=== PATIENT | male | born 1960 | race African-American/Black ===

== ENCOUNTER 2019-07-05 15:37 | Inpatient (IN) | payer OTHER ==
[2019-07-05 20:47] VITALS: BMI 29.7
--- NOTE | 2019-07-05 23:46 | HP ---
COWS - Scale Resting Pulse: 0= [place] 80 or Below Sweatin=Flushed/Facial Moisture Restless Observation: 0= Sits Still Pupil Size: 0= Normal to Room Light Bone or Joint Aches: 2= Severe Diffuse Aches Runny Nose/ Eye Tearin= Runny Nose/Eyes GI Upset > 30mins: 3= Vomiting/Diarrhea (vomiting x 2, diarrhea x 4) Tremor Observation: 2= Slight Tremor Visible Yawning Observation: 1= 1-2x During Session Anxiety or Irritability: 4=Extreme Anxiety Goose Flesh Skin: 3=Piloerection COWS Score: 19 CIWA Score - Admission Criteria OASAS Guidelines: Admission for Medically Managed Detox: Requires at least one of the followin. CIWA greater than 12 2. Seizures within the past 24 hours 3. Delirium tremens within the past 24 hours 4. Hallucinations within the past 24 hours 5. Acute intervention needed for co occurring medical disorder 6. Acute intervention needed for co occurring psychiatric disorder 7. Severe withdrawal that cannot be handled at a lower level of care (continued vomiting, continued diarrhea, abnormal vital signs) requiring intravenous medication and/or fluids 8. Admission ROS [facility] Chief Complaint: Heroin withdrawal symptom Allergies/Adverse Reactions: Allergies Allergy/AdvReac Type Severity Reaction Status Date / Time No Known Allergies Allergy Verified 07/05/19 20:34 History of Present Illness: 59 years old with 37 years of heroin dependence is seeking admission to detox. Patient has been to multiple detox admissions, last [facility] [place], [place]. He has history of hypertension and denies suicidal ideation at this time Exam Limitations: No Limitations - Ebola screening Have you traveled outside of the country in the last 21 days: No Have you had contact with anyone from an Ebola affected area: No Have you been sick,other than usual withdrawal symptoms: No - Review of Systems Constitutional: Chills, Changes in sleep, Unintentional Wgt. Loss EENT: reports: Nose Congestion Respiratory: reports: No Symptoms reported Cardiac: reports: No Symptoms Reported GI: reports: Diarrhea, Poor Appetite, Poor Fluid Intake, Abdominal cramping : reports: No Symptoms Reported Musculoskeletal: reports: Back Pain Integumentary: reports: Dryness, Flushing Neuro: reports: Headache, Tremors Endocrine: reports: No Symptoms Reported Hematology: reports: No Symptoms Reported Psychiatric: reports: Mood/Affect Appropiate, Orientated x3 Other Systems: Reviewed and Negative Patient History - Patient Medical History Hx Anemia: No Hx Asthma: No Hx Chronic Obstructive Pulmonary Disease (COPD): No Hx Cancer: No Hx Cardiac Disorders: No Hx Congestive Heart Failure: No Hx Hypertension: No Hx Hypercholesterolemia: No Hx Pacemaker: No HX Cerebrovascular Accident: No Hx Seizures: No Hx Dementia: No Hx Diabetes: No Hx Gastrointestinal Disorders: No Hx Liver Disease: No Hx Genitourinary Disorders: No Hx Sexually Transmitted Disorders: No Hx Renal Disease (ESRD): No Hx Thyroid Disease: No Hx Human Immunodeficiency Virus (HIV): No Hx Hepatitis C: No Hx Depression: No Hx Suicide Attempt: No Hx Schizophrenia: No - Patient Surgical History Past Surgical History: Yes Hx Neurologic Surgery: No Hx Cataract Extraction: No Hx Cardiac Surgery: No Hx Lung Surgery: No Hx Breast Surgery: No Hx Breast Biopsy: No Hx Abdominal Surgery: No Hx Appendectomy: No Hx Cholecystectomy: No Hx Genitourinary Surgery: No Hx Section: No Hx Orthopedic Surgery: Yes (fx of left ankle in 1997 at [facility]) Anesthesia Reaction: No - PPD History Date: 03/20/12 - Smoking Cessation Smoking history: Current every day smoker Have you smoked in the past 12 months: Yes Aproximately how many cigarettes per day: 20 Hx Chewing Tobacco Use: No Initiated information on smoking cessation: Yes 'Breaking Loose' booklet given: 07/05/19 - Substances abused Heroin Substance route: Inhalation Frequency: Daily Amount used: 10 bags/day Age of first use: 21 Date of last use: 07/05/19 Family Disease History - Family Disease History Family History: Denies Family Disease History: Other: Brother (HIV - ) Admission Physical Exam S - Vital Signs Vital Signs: Vital Signs - 24 hr 07/05/19 07/05/19 20:44 22:16 Temperature 97.2 F L 97.2 F L Pulse Rate 72 72 Respiratory 16 16 Rate Blood Pressure 117/77 117/77 - Physical General Appearance: Yes: Moderate Distress, Tremorous, Sweating HEENTM: Yes: Within Normal Limits Respiratory: Yes: Lungs Clear, Normal Breath Sounds, No Respiratory Distress Neck: Yes: Within Normal Limits, Supple Breast: Yes: Breast Exam Deferred Cardiology: Yes: Regular Rhythm, Regular Rate Abdominal: Yes: Normal Bowel Sounds Genitourinary: Yes: Within Normal Limits Back: Yes: Normal Inspection Musculoskeletal: Yes: Back pain Extremities: Yes: Tremors Neurological: Yes: Alert, Normal Mood/Affect Integumentary: Yes: Warm Lymphatic: Yes: Within Normal Limits Cleared for Admission S - Detox or Rehab [facility] Level of Care: Medically Managed Detox Regimen/Protocol: Methadone Breathalyzer - Breathalyzer Breathalyzer: 0 Urine Drug Screen - Test Device Lot number: [id number] Expiration date: 03/23/21 - Control Is test valid?: Yes - Results Drug screen NEGATIVE: No Urine drug screen results: ERIN-Cocaine, FEN-Fentanyl, MOP-Opiates, MTD-Methadone Inpatient Rehab Admission - Rehab Decision to Admit Inpatient rehab admission?: No
[2019-07-05] MEDS ORDERED: MAGNESIUM HYDROX 2400MG/30ML ORAL SUSPENSION 30 ML CUP PO PRN (23:51)
[2019-07-05] MEDS ORDERED: METHADONE HCL 10 MG TABLET (FOR DETOX USE ONLY) PO ONE (23:51)
[2019-07-05] MEDS ORDERED: hydrOXYzine PAMOATE 25 MG CAPSULE (FP) PO PRN (23:51)
[2019-07-05] MEDS ORDERED: IBUPROFEN 400 MG TABLET (FP) PO PRN (23:51)
[2019-07-05] MEDS ORDERED: MENTHOL/PHENOL 1 EACH UD MM PRN (23:51)
[2019-07-05] MEDS ORDERED: BISMUTH SUBSALICYLATE 524 MG/30 ML UD PO PRN (23:51)
[2019-07-05] MEDS ORDERED: MAG HYDROX/AL HYDROX/SIMETH 30 ML UNIT-DOSE CUP PO PRN (23:51)
[2019-07-05] MEDS ORDERED: MAGNESIUM CITRATE 300 ML BOTTLE PO PRN (23:51)
[2019-07-05] MEDS ORDERED: ACETAMINOPHEN 325 MG TABLET (FP) PO PRN ×2 (23:51)
[2019-07-05] MEDS ORDERED: cloNIDine HCL 0.1 MG TABLET PO PRN (23:51)
[2019-07-05] MEDS ORDERED: METHOCARBAMOL 500 MG TABLET PO PRN (23:51)
[2019-07-05] MEDS ORDERED: NICOTINE POLACRILEX 2 MG GUM BUC PRN (23:51)
[2019-07-06] MEDS ORDERED: TUBERCULIN PPD 5 TU/0.1ML VIAL ID ONE (00:57)
[2019-07-06] MEDS ORDERED: METHADONE HCL 10 MG TABLET (FOR DETOX USE ONLY) ONE (08:59)
[2019-07-06] MEDS ORDERED: METHADONE HCL 5 MG TABLET (FOR DETOX USE ONLY) ONE (08:59)
--- NOTE | 2019-07-06 09:44 | PN ---
BHS COWS - Scale Resting Pulse: 0= [place] 80 or Below Sweatin= Chills/Flushing Restless Observation: 1= Difficult to Sit Still Pupil Size: 1= Pupils >than Normal Bone or Joint Aches: 2= Severe Diffuse Aches Runny Nose/ Eye Tearin= Nasal Congestion GI Upset > 30mins: 2= Nausea/Diarrhea Tremor Observation of Outstretched Hands: 2= Slight Tremor Visible Yawning Observation: 1= 1-2x During Session Anxiety or Irritability: 2=Irritable/Anxious Goose Flesh Skin: 0=Smooth Skin COWS Score: 13 BHS Progress Note (SOAP) Subjective: alert,irritable,anxious,interrupted sleep,tremor,pain in the body and back Objective: 07/06/19 09:43 Vital Signs Temperature 97.5 F L 07/06/19 09:22 Pulse Rate 63 07/06/19 09:22 Respiratory Rate 18 07/06/19 09:22 Blood Pressure 122/59 L 07/06/19 09:22 O2 Sat by Pulse Oximetry (%) labs pending Assessment: 07/06/19 09:43 withdrawal symptom Plan: continue detox methadone regimen
[2019-07-06] MEDS ORDERED: METHADONE (DETOX) 20 MG, METHADONE (DETOX) 5 MG PO ONE (10:00)
[2019-07-06] MEDS: amLODIPine BESYLATE 5 MG TABLET (FP) PO SCH (10:19)
[2019-07-06] MEDS: NICOTINE 14 MG/24 HOURS TOPICAL PATCH TD SCH (10:19)
[2019-07-06] MEDS: PRENATAL VITAMINS W/ FOLIC ACID TABLET (FP) PO SCH (10:19)
[2019-07-06 12:59] LABS: ALBUMIN 3.6 g/dl (3.4-5.0); BILIRUBIN,TOTAL 0.7 mg/dL (0.2-1); BLOOD UREA NITROGEN 22.9 mg/dL (7-18); CREATININE 1.1 mg/dL (0.55-1.3); POTASSIUM 4.6 mmol/L (3.5-5.1); TOT PROT 7.1 g/dl (6.4-8.2)
[2019-07-06 13:46] LABS: HEMATOCRIT 40.4 % (35.4-49); HEMOGLOBIN 13.6 GM/dL (11.7-16.9); MCH 32.1 pg (25.7-33.7); MCHC 33.6 g/dl (32.0-35.9); MEAN CELL VOLUME 95.5 fl (80-96); MEAN PLT VOLUME 7.9 fl (7.5-11.1); PLATELET COUNT 278 K/MM3 (134-434); RBC 4.22 M/mm3 (4.00-5.60); RDW 13.7 % (11.9-15.9); WHITE BLOOD COUNT 4.2 K/mm3 (4.0-10.0)
[2019-07-06] MEDS: MELATONIN 5 MG TABLETS PO PRN (22:14)
[2019-07-06] MEDS: THIAMINE HCL 100 MG TABLET (FP) PO SCH (22:14)
[2019-07-07] MEDS ORDERED: METHADONE HCL 10 MG TABLET (FOR DETOX USE ONLY) PO ONE (10:00)
[2019-07-07] MEDS: amLODIPine BESYLATE 5 MG TABLET (FP) PO SCH (10:34)
[2019-07-07] MEDS: NICOTINE 14 MG/24 HOURS TOPICAL PATCH TD SCH (10:34)
[2019-07-07] MEDS: PRENATAL VITAMINS W/ FOLIC ACID TABLET (FP) PO SCH (10:34)
--- NOTE | 2019-07-07 14:52 | PN ---
BHS COWS - Scale Resting Pulse: 0= [place] 80 or Below Sweatin= Chills/Flushing Restless Observation: 0= Sits Still Pupil Size: 0= Normal to Room Light Bone or Joint Aches: 2= Severe Diffuse Aches Runny Nose/ Eye Tearin= None GI Upset > 30mins: 0= None Tremor Observation of Outstretched Hands: 0= None Yawning Observation: 1= 1-2x During Session Anxiety or Irritability: 2=Irritable/Anxious Goose Flesh Skin: 3=Piloerection COWS Score: 9 BHS Progress Note (SOAP) Subjective: Anxious, Body Aches, Interrupted Sleep, Tremors. Objective: PATIENT A & O X 3. IN NO ACUTE DISTRESS. 07/07/19 14:49 Vital Signs Temperature 96.8 F L 07/07/19 13:18 Pulse Rate 69 07/07/19 13:18 Respiratory Rate 18 07/07/19 13:18 Blood Pressure 145/95 07/07/19 13:18 O2 Sat by Pulse Oximetry (%) Laboratory Tests 07/06/19 07/06/19 07/06/19 07:30 07:30 07:30 WBC 4.2 RBC 4.22 Hgb 13.6 Hct 40.4 MCV 95.5 MCH 32.1 MCHC 33.6 RDW 13.7 Plt Count 278 MPV 7.9 Sodium 141 Potassium 4.6 Chloride 106 Carbon Dioxide 31 Anion Gap 4 L BUN 22.9 H Creatinine 1.1 Est GFR (CKD-EPI)AfAm 84.71 Est GFR (CKD-EPI)NonAf 73.09 Random Glucose 131 H Calcium 9.0 Total Bilirubin 0.7 AST 15 ALT 29 Alkaline Phosphatase 121 H Total Protein 7.1 Albumin 3.6 RPR Titer Nonreactive LABS NOTED. RESULTS OF DETOX ADMISSION QFT /TB TEST PENDING. 07/07/19 14:50 Assessment: 07/07/19 14:51 WITHDRAWAL SYMPTOMS. HYPERGLYCEMIA. 07/07/19 14:52 Plan: CONTINUE DETOX. INCREASE DAILY PO WATER INTAKE. BGM ACBK FOR ELEVATED ADMISSION RANDOM GLUCOSE LEVEL.
[2019-07-07] MEDS: MELATONIN 5 MG TABLETS PO PRN (22:14)
[2019-07-07] MEDS: ATORVASTATIN CA 20 MG TABLET (FP) PO SCH (22:14)
[2019-07-07] MEDS: THIAMINE HCL 100 MG TABLET (FP) PO SCH (22:14)
[2019-07-08] MEDS ORDERED: METHADONE HCL 10 MG TABLET (FOR DETOX USE ONLY) ONE (09:25)
[2019-07-08] MEDS ORDERED: METHADONE HCL 5 MG TABLET (FOR DETOX USE ONLY) ONE (09:26)
[2019-07-08] MEDS ORDERED: METHADONE HCL 10 MG TABLET (FOR DETOX USE ONLY) PO ONE (10:00)
[2019-07-08] MEDS ORDERED: METHADONE (DETOX) 10 MG, METHADONE (DETOX) 5 MG PO ONE (10:00)
[2019-07-08] MEDS: PRENATAL VITAMINS W/ FOLIC ACID TABLET (FP) PO SCH (10:27)
[2019-07-08] MEDS: amLODIPine BESYLATE 5 MG TABLET (FP) PO SCH (10:27)
[2019-07-08] MEDS: NICOTINE 14 MG/24 HOURS TOPICAL PATCH TD SCH (10:27)
--- NOTE | 2019-07-08 15:51 | PN ---
BHS COWS - Scale Resting Pulse: 0= [place] 80 or Below Sweatin= No chills or Flushing Restless Observation: 1= Difficult to Sit Still Pupil Size: 0= Normal to Room Light Bone or Joint Aches: 0= None Runny Nose/ Eye Tearin= None GI Upset > 30mins: 0= None Tremor Observation of Outstretched Hands: 0= None Yawning Observation: 1= 1-2x During Session Anxiety or Irritability: 0= None Goose Flesh Skin: 0=Smooth Skin COWS Score: 2 BHS Progress Note (SOAP) Subjective: Patient denies current Withdrawal / Detox symptoms and reports that he feels well overall at this time. Objective: PATIENT A & O X 3, OBSERVED AMBULATING ON UNIT UNASSISTED. IN NO ACUTE DISTRESS. 07/08/19 15:47 Vital Signs Temperature 98.6 F 07/08/19 13:40 Pulse Rate 69 07/08/19 13:40 Respiratory Rate 18 07/08/19 13:40 Blood Pressure 137/90 07/08/19 13:40 O2 Sat by Pulse Oximetry (%) Laboratory Tests 07/06/19 07/06/19 07/06/19 07:30 07:30 07:30 WBC 4.2 RBC 4.22 Hgb 13.6 Hct 40.4 MCV 95.5 MCH 32.1 MCHC 33.6 RDW 13.7 Plt Count 278 MPV 7.9 Sodium 141 Potassium 4.6 Chloride 106 Carbon Dioxide 31 Anion Gap 4 L BUN 22.9 H Creatinine 1.1 Est GFR (CKD-EPI)AfAm 84.71 Est GFR (CKD-EPI)NonAf 73.09 POC Glucometer Random Glucose 131 H Calcium 9.0 Total Bilirubin 0.7 AST 15 ALT 29 Alkaline Phosphatase 121 H Total Protein 7.1 Albumin 3.6 RPR Titer Nonreactive 07/08/19 07:36 WBC RBC Hgb Hct MCV MCH MCHC RDW Plt Count MPV Sodium Potassium Chloride Carbon Dioxide Anion Gap BUN Creatinine Est GFR (CKD-EPI)AfAm Est GFR (CKD-EPI)NonAf POC Glucometer 168 Random Glucose Calcium Total Bilirubin AST ALT Alkaline Phosphatase Total Protein Albumin RPR Titer LABS NOTED. RESULTS OF DETOX ADMISSION QFT /TB TEST PENDING. 07/08/19 15:48 Assessment: 07/08/19 15:48 WITHDRAWAL SYMPTOMS. HYPERGLYCEMIA. 07/08/19 15:51 Plan: PATIENT REPORTS THAT CURRENT WITHDRAWAL / DETOX SYMPTOMS ARE MINIMAL AND THAT HE FEELS WELL OVERALL. AT PATIENT'S REQUEST, CURRENT DETOX MEDICATION REGIMEN ( METHADONE) MODIFIED SO THAT PATIENT MAY BE DISCHARGED TOMORROW, 07/09/2019. PATIENT ADVISED TO FOLLOW-UP WITH [facility] AFTER DISCHARGE FROM DETOX FOR GENERAL MEDICAL ASSESSMENT AND FOR ELEVATED RANDOM GLUCOSE LEVEL ON DETOX ADMISSION LABORATORY ASSESSMENT AND FOR ELEVATED ACBK BGM DOEN EARLIER TODAY. PATIENT VERBALIZED UNDERSTANDING OF RECOMMENDATION. COPIES OF RESULTS OF ALL LABS DRAWN WHILE ADMITTED FOR DETOX WILL BE GIVEN TO PATIENT AT TIME OF DISCHARGE FROM DETOX UNIT.
[2019-07-08] MEDS: MELATONIN 5 MG TABLETS PO PRN (22:08)
[2019-07-08] MEDS: THIAMINE HCL 100 MG TABLET (FP) PO SCH (22:08)
[2019-07-08] MEDS: ATORVASTATIN CA 20 MG TABLET (FP) PO SCH (22:08)
[2019-07-09] MEDS ORDERED: METHADONE HCL 5 MG TABLET (FOR DETOX USE ONLY) PO ONE (06:00)
[2019-07-09 06:38] VITALS: BP 147/92; PULSE 62; TEMP 97.9
--- NOTE | 2019-07-09 08:11 | DS ---
[facility] Detox Discharge Summary Admission Date: 07/06/19 59 years old with 37 years of heroin dependence is seeking admission to detox. Patient has been to multiple detox admissions, last [facility] [place], [place]. His hospital stay here was uneventful and he is not in withdrawals any longer. Discharge Date: 07/09/19 (Patient is stable and has discharge plans) - History Present History: Opioid Dependence Additional Comments: 59 years old with 37 years of heroin dependence is seeking admission to detox. Patient has been to multiple detox admissions, last [facility] [place], [place]. He has history of hypertension and denies suicidal ideation at this time Laboratory 07/06/19 07/06/19 07/06/19 07:30 07:30 07:30 WBC 4.2 K/mm3 K/mm3 (4.0-10.0) RBC 4.22 M/mm3 M/mm3 (4.00-5.60) Hgb 13.6 GM/dL GM/dL (11.7-16.9) Hct 40.4 % % (35.4-49) MCV 95.5 fl fl (80-96) MCH 32.1 pg pg (25.7-33.7) MCHC 33.6 g/dl g/dl (32.0-35.9) RDW 13.7 % % (11.9-15.9) Plt Count 278 K/MM3 K/MM3 (134-434) MPV 7.9 fl fl (7.5-11.1) Sodium 141 mmol/L mmol/L (136-145) Potassium 4.6 mmol/L mmol/L (3.5-5.1) Chloride 106 mmol/L mmol/L (98-107) Carbon Dioxide 31 mmol/L mmol/L (21-32) Anion Gap 4 MMOL/L L MMOL/L (8-16) BUN 22.9 mg/dL H mg/dL (7-18) Creatinine 1.1 mg/dL mg/dL (0.55-1.3) Est GFR (CKD-EPI)AfAm 84.71 Est GFR (CKD-EPI)NonAf 73.09 POC Glucometer Random Glucose 131 mg/dL H mg/dL (74-106) Calcium 9.0 mg/dL mg/dL (8.5-10.1) Total Bilirubin 0.7 mg/dL mg/dL (0.2-1) AST 15 U/L U/L (15-37) ALT 29 U/L U/L (13-61) Alkaline Phosphatase 121 U/L H U/L (45-117) Total Protein 7.1 g/dl g/dl (6.4-8.2) Albumin 3.6 g/dl g/dl (3.4-5.0) RPR Titer Nonreactive (NONREACTIVE) TB (QFT) Incubation TB Test (QFT) Nil TB Test (QFT) Mitogen TB Test (QFT) Antigen TB Test (QFT) TB Positive Criteria 07/06/19 07/08/19 07/09/19 07:30 07:36 06:50 WBC RBC Hgb Hct MCV MCH MCHC RDW Plt Count MPV Sodium Potassium Chloride Carbon Dioxide Anion Gap BUN Creatinine Est GFR (CKD-EPI)AfAm Est GFR (CKD-EPI)NonAf POC Glucometer 168 UNITS UNITS 138 UNITS UNITS (80-120) (80-120) Random Glucose Calcium Total Bilirubin AST ALT Alkaline Phosphatase Total Protein Albumin RPR Titer TB (QFT) Incubation (.) TB Test (QFT) Nil 0.04 IU/mL IU/mL (.) TB Test (QFT) Mitogen >10.00 IU/mL IU/mL (.) TB Test (QFT) Antigen 0.05 IU/mL IU/mL (.) TB Test (QFT) Negative (Negative) TB Positive Criteria (.) - Physical Exam Results Vital Signs: Vital Signs Temperature 97.9 F 07/09/19 06:00 Pulse Rate 62 07/09/19 06:00 Respiratory Rate 18 07/09/19 06:00 Blood Pressure 147/92 07/09/19 06:00 O2 Sat by Pulse Oximetry (%) Pertinent Admission Physical Exam Findings: Alert, oriented x 3 Cor: S1, S2 normal Lungs: Clear to Auscultation. Ext: FROM, Normal and no sensory deficits. - Treatment Hospital Course: Detox Protocol Followed, Responded well, Discharged Condition Good Patient has Accepted a Rehab Referral to: He will return to his prior program [facility] - Medication Discharge Medications: Ambulatory Orders Amlodipine Besylate 5 mg PO DAILY 07/05/19 Atorvastatin Calcium 20 mg PO DAILY 07/05/19 - Diagnosis (1) Opioid dependence Current Visit: Yes Status: Acute (2) Hyperglycemia Current Visit: Yes Status: Acute (3) Hypertension Current Visit: Yes Status: Acute Qualifiers: Hypertension type: essential hypertension Qualified Code(s): I10 - Essential (primary) hypertension - AMA Did Patient Leave Against Medical Advice: No (Patient voluntarily wants to be discharged because no more withdrawals.)
[2019-07-09] MEDS ORDERED: METHADONE HCL 10 MG TABLET (FOR DETOX USE ONLY) PO ONE (10:00)
[2019-07-10] MEDS ORDERED: METHADONE HCL 5 MG TABLET (FOR DETOX USE ONLY) PO ONE (06:00)
== END 2019-07-09 08:40 | disposition home or self-care (01) | DRG 773 ==
LOC: YASAS 15:37 → Y6N 07-06 00:15
PROVIDERS: ADMIT Surgery; ATTEND Surgery
PROC: HZ2ZZZZ Detoxification Services for Substance Abuse Treatment (ICD-10-PCS; principal; 2019-07-06)
DX: F11.23 Opioid dependence with withdrawal (principal); F17.210 Nicotine dependence, cigarettes, uncomplicated; I10 Essential (primary) hypertension; R73.9 Hyperglycemia, unspecified
CPT/HCPCS: 36415; 80053; 82962; 85027; 86480; 86593